=== PATIENT | male | born 1990 ===

== ENCOUNTER 2016-10-17 21:04 | Emergency (ER) | payer OTHER ==
[2016-10-17] MEDS ORDERED: Sodium Chloride 0.9% 1,000 ML IV ONE (21:52)
[2016-10-17] MEDS ORDERED: Sodium Chloride 0.9% 1,000 ML ONE (22:00)
--- NOTE | 2016-10-17 22:00 | C.PDOC ---
History Of Present Illness A 26 y/o M c/o sudden onset of itchy skin rash that began 2 ago. Pt took 50mg PO of Benadryl. Pt notes eating peanut oil and having a peanut allergy. Denies SOB, fever, chills, chest pain, dizziness, diaphoresis, or any other complaints. Time Seen by Provider: 10/17/16 21:30 Chief Complaint (Nursing): Allergic Reaction History Per: Patient History/Exam Limitations: no limitations Onset/Duration Of Symptoms: Hrs (2) Current Symptoms Are (Timing): Still Present Quality Of Symptoms: Itching Severity: Mild Recent travel outside of the [place]: No Additional History Per: Patient Past Medical History Reviewed: Historical Data, Nursing Documentation, Vital Signs Vital Signs: Last Vital Signs Temp 97.7 F 10/17/16 21:22 Pulse 138 H 10/17/16 21:22 Resp 20 10/17/16 21:22 BP 147/68 10/17/16 21:22 Pulse Ox 99 10/17/16 23:49 Family History: States: Unknown Family Hx - Social History Hx Alcohol Use: No Hx Substance Use: No - Immunization History Hx Tetanus Toxoid Vaccination: No Hx Influenza Vaccination: No Hx Pneumococcal Vaccination: No Review Of Systems Except As Marked, All Systems Reviewed And Found Negative. Constitutional: Negative for: Fever, Chills, Sweats Cardiovascular: Negative for: Chest Pain Respiratory: Negative for: Shortness of Breath Skin: Positive for: Rash (Itchy rash) Neurological: Negative for: Dizziness Physical Exam - Physical Exam Appears: Non-toxic, No Acute Distress Skin: Warm, Dry, Rash (Generalized urticaric rash to the chest wall and bilateral upper extremity) Head: Atraumatic, Normacephalic Eye(s): bilateral: Normal Inspection Oral Mucosa: Moist Throat: Normal, No Erythema, No Exudate Neck: Supple Cardiovascular: Rhythm Regular Respiratory: Normal Breath Sounds, No Accessory Muscle Use, No Rales, No Rhonchi , No Wheezing Neurological/Psych: Oriented x3, Normal Speech, Normal Cognition Gait: Steady ED Course And Treatment O2 Sat by Pulse Oximetry: 99 (RA) Pulse Ox Interpretation: Normal Medical Decision Making Medical Decision Making: Impression: A 26 y/o M c/o sudden onset of itchy skin rash that began 2 ago. Plans: -Pepcid -PrednisLONE -IV fluids 23:50. Alergic RXN improved. Pt feels better and will be discharge. Disposition Counseled Patient/Family Regarding: Diagnosis - Disposition Referrals: [facility] [Outside] Disposition: HOME/ ROUTINE Disposition Time: 23:45 Condition: STABLE Prescriptions: DiphenhydrAMINE [Benadryl] 50 mg PO Q6 #20 cap Famotidine [Pepcid] 20 mg PO BID #14 tab Methylprednisolone [Medrol Dose Pack (21 tabs)] 4 mg PO DAILY #21 mg Instructions: General Allergic Reaction (ED) - Clinical Impression Clinical Impression: Allergic reaction - Scribe Statement The provider has reviewed the documentation as recorded by the Scribe Valarie martinez All medical record entries made by the Scribe were at my direction and personally dictated by me. I have reviewed the chart and agree that the record accurately reflects my personal performance of the history, physical exam, medical decision making, and the department course for this patient. I have also personally directed, reviewed, and agree with the discharge instructions and disposition.
[2016-10-18 12:12] VITALS: BP 126/78; PULSE 99; RESP 18; TEMP 98.3; O2SAT 98
== END 2016-10-18 00:06 | disposition home or self-care (01) ==
LOC: C.ER 21:04
DX: T78.40XA Allergy, unspecified, initial encounter (principal)
CPT/HCPCS: 96374; 96375; 99284; J2930; J7040